=== PATIENT | female | born 1980 | race American Indian/Alaskan Native ===

== ENCOUNTER 2022-05-28 10:35 | Emergency (ER) | payer MEDICAID ==
[2022-05-28 12:43] VITALS: BP 102/58
== END 2022-05-29 02:44 | disposition left against medical advice (07) ==
LOC: ED 10:35
DX: R06.02 Shortness of breath (principal); R42 Dizziness and giddiness; Z53.21 Procedure and treatment not carried out due to patient leaving prior to being seen by health care provider